=== PATIENT | male | born 1980 | race Caucasian/White ===

== ENCOUNTER 2017-11-24 17:56 | Emergency (ER) | payer OTHER, SELFPAY ==
[2017-11-24 18:00] VITALS: BP 132/89; PULSE 90; RESP 15; TEMP 36.8; O2SAT 99; BMI 27.3
--- NOTE | 2017-11-24 19:23 | DI.RAD.S_ITS ---
PROCEDURE: XR LUMBAR SPINE 2-3V INDICATIONS: lumbar pain TECHNIQUE: A 3 views of the lumbar spine were acquired. COMPARISON: None. FINDINGS: Bones: 5 [id number] vertebrae are present. There is slight levoscoliotic bony alignment. No vertebral body compression fractures. No suspicious bony lesions. Soft tissues: Overlying bowel gas pattern is normal. No suspicious soft tissue calcifications. IMPRESSION: A slight degree of levoscoliosis is seen,, centered at the L4 level of the lumbosacral spine is present but no definite source of back pain is identified. Dictated by: Tex Murray M.D. on 11/24/2017 at 20:22 Approved by: Tex Murray M.D. on 11/24/2017 at 20:23
--- NOTE | 2017-11-24 19:29 | ED.BACK ---
HPI - Back Pain/Injury <DEANDRA Blake - Last Filed: 11/24/17 21:48> General Chief Complaint: Back Pain/Injury Stated Complaint: LOW BACK PAIN Time Seen by Provider: 11/24/17 19:13 Source: patient Mode of arrival: ambulatory Limitations: no limitations History of Present Illness HPI Narrative: Patient presents with chief complaint of lower back pain. He states he was bending over to drink of water out of a fountain and had sudden onset of lower back pain. He states that this is never happened at the same place before. He denies any numbness, tingling, bladder incontinence, but bowel incontinence or saddle anesthesia. He has not taken anything for pain. He states he has had back pain before, but much higher between her shoulder blades. Related Data Previous Rx's Medication Instructions Recorded cyclobenzaprine 10 mg PO TID PRN #30 tab 11/24/17 naproxen 500 mg PO BID PRN #30 tab 11/24/17 Allergies Allergy/AdvReac Type Severity Reaction Status Date / Time iodine Allergy Verified 11/24/17 18:00 Review of Systems <DEANDRA Blake - Last Filed: 11/24/17 21:48> Review of Systems GENERAL: Denies chills, fatigue, malaise, fever, sweats. HEENT: Denies sinus pain, ear pain, sore throat, difficulty swallowing, dizziness. RESPIRATORY: Denies dyspnea, cough, wheezing, hemoptysis, sputum. CARDIOVASCULAR: Denies chest pain, palpitations, orthopnea, edema, GASTROINTESTINAL: Denies nausea, vomiting, abdominal pain, diarrhea, constipation, melena. : Denies dysuria, frequency, incontinence, hematuria, urinary retention. MUSCULOSKELETAL: See HPI SKIN: Denies rash, skin lesions, or other NEUROLOGIC: Denies weakness, headache, numbness, change in speech, confusion, seizures, incoordination. PSYCHIATRIC: No concerning psychosocial issues. 12 point review of systems is negative except for those stated above Exam <DEANDRA Blake - Last Filed: 11/24/17 21:48> Narrative Exam Narrative: GENERAL: This is a well-nourished, well-developed patient, appears uncomfortable HEAD: Atraumatic. Normocephalic. No temporal or scalp tenderness. EYES: Pupils equal round and reactive. Extraocular motions intact. No scleral icterus. No injection or drainage. ENT: Nose without bleeding, purulent drainage or septal hematoma. Throat without erythema, tonsillar hypertrophy or exudate. Uvula midline. Airway patent. NECK: Trachea midline. No JVD or lymphadenopathy. Supple, nontender, no meningeal signs. CARDIOVASCULAR: Regular rate and rhythm without murmurs, gallops, or rubs. RESPIRATORY: Clear to auscultation. Breath sounds equal bilaterally. No wheezes, rales, or rhonchi. GASTROINTESTINAL: Abdomen soft, non-tender, nondistended. No hepato-splenomegaly, or palpable masses. No guarding. EXTREMITIES: No clubbing, cyanosis, or edema. No joint tenderness, effusion, or edema noted. Equal strength noted upper and lower extremities bilaterally. BACK: Nontender to palpation of C-spine and spinal column. Patient has pain to palpation of left paraspinal muscles in the lumbar region. He has a very stiff gait. Reduced range of motion all nicholas of back. NEURO: AOx3. Clear speech. Heel-hayward test is intact. Patient states rectal tone is intact and declines rectal exam. Achilles and radial reflexes are intact bilaterally. SKIN: No rash or erythema. No erythema, ecchymosis or rash noted lower back. Initial Vital Signs Initial Vital Signs: Vital Signs Temperature 98.2 F 11/24/17 18:00 Pulse Rate 90 11/24/17 18:00 Respiratory Rate 15 11/24/17 18:00 Blood Pressure 132/89 11/24/17 18:00 Pulse Oximetry 99 11/24/17 18:00 <Rajat Etienne DO - Last Filed: 11/24/17 23:32> Initial Vital Signs Initial Vital Signs: Vital Signs Temperature 98.2 F 11/24/17 18:00 Pulse Rate 90 11/24/17 18:00 Respiratory Rate 15 11/24/17 18:00 Blood Pressure 132/89 11/24/17 18:00 Pulse Oximetry 99 11/24/17 18:00 Course <ACE Blake - Last Filed: 11/24/17 21:48> Orders Ordered: ED Orders 11/24/17 19:23 XR lumbar spine 2-3V Stat Discontinued Medications Cyclobenzaprine HCl (Flexeril) 10 mg PO NOW ONE Stop: 11/24/17 19:24 Last Admin: 11/24/17 19:43 Dose: 10 mg Cyclobenzaprine HCl (Flexeril 10 Mg Prepack) 1 bottle MISC SEEINSTR ONE Stop: 11/24/17 20:47 Last Admin: 11/24/17 21:04 Dose: 1 bottle Ketorolac Tromethamine (Toradol) 60 mg IM NOW ONE Stop: 11/24/17 19:24 Last Admin: 11/24/17 19:42 Dose: 60 mg Oxycodone/Acetaminophen (Endocet 5/325 Prepack) 1 bottle MISC SEEINSTR ONE Stop: 11/24/17 20:47 Last Admin: 11/24/17 21:04 Dose: 1 bottle Vital Signs - 8 hr 11/24/17 18:00 11/24/17 21:03 Temperature 98.2 F Pulse Rate 90 75 Respiratory Rate 15 20 Blood Pressure 132/89 Blood Pressure [Left Arm] 131/88 Pulse Oximetry 99 98 <Rajat Etienne DO - Last Filed: 11/24/17 23:32> Orders Ordered: ED Orders 11/24/17 19:23 XR lumbar spine 2-3V Stat Discontinued Medications Cyclobenzaprine HCl (Flexeril) 10 mg PO NOW ONE Stop: 11/24/17 19:24 Last Admin: 11/24/17 19:43 Dose: 10 mg Cyclobenzaprine HCl (Flexeril 10 Mg Prepack) 1 bottle MISC SEEINSTR ONE Stop: 11/24/17 20:47 Last Admin: 11/24/17 21:04 Dose: 1 bottle Ketorolac Tromethamine (Toradol) 60 mg IM NOW ONE Stop: 11/24/17 19:24 Last Admin: 11/24/17 19:42 Dose: 60 mg Oxycodone/Acetaminophen (Endocet 5/325 Prepack) 1 bottle MISC SEEINSTR ONE Stop: 11/24/17 20:47 Last Admin: 11/24/17 21:04 Dose: 1 bottle Vital Signs - 8 hr 11/24/17 18:00 11/24/17 21:03 Temperature 98.2 F Pulse Rate 90 75 Respiratory Rate 15 20 Blood Pressure 132/89 Blood Pressure [Left Arm] 131/88 Pulse Oximetry 99 98 MDM - Back Pain/Injury <ACE Blake - Last Filed: 11/24/17 21:48> Imaging Data lumbar xray: Radiologist's impression: [address] [address] XRay Report Signed Patient: Elmer Theodore DMR#: [id number] : 1980Acct:[id number] Age/Sex: 37 / MDate of Service: 11/24/17 Loc: ED Accession Number: [id number] Procedure: XR lumbar spine 2-3V Ordering Provider: Leydi Leach- PROCEDURE: XR LUMBAR SPINE 2-3V INDICATIONS: lumbar pain TECHNIQUE: A 3 views of the lumbar spine were acquired. COMPARISON: None. FINDINGS: Bones: 5 goi-thn-[id number] vertebrae are present. There is slight levoscoliotic bony alignment. No vertebral body compression fractures. No suspicious bony lesions. Soft tissues: Overlying bowel gas pattern is normal. No suspicious soft tissue calcifications. IMPRESSION: A slight degree of levoscoliosis is seen,, centered at the L4 level of the lumbosacral spine is present but no definite source of back pain is identified. Dictated by: Tex Murray M.D. on 11/24/2017 at 20:22 Approved by: Tex Murray M.D. on 11/24/2017 at 20:23 MDM Narrative Medical decision making narrative: The patient presents with chief complaint of lower back pain on his left side. Exam indicates muscle spasm. He had good success the emergency department with treatment of Toradol and Flexeril. His x-ray showed no fracture but slight scoliosis. He plans on playing of his primary care provider tomorrow. He is given take-home packs of Percocet as well as Flexeril. I did give him prescriptions for naproxen and Flexeril in addition to this. I encouraged him to follow up with his primary care but to come back to the emergency department for any red flag symptoms including incontinence of bowel, incontinence of bladder saddle anesthesia. He had no questions or concerns upon discharge and ambulated steadily out to the checkup. Discharge Plan Departure Patient Disposition: Home Clinical Impression: Strain of lumbar region Discharge Date/Time: 11/24/17 21:07 Interventions: ED Discharge Assessment Last Done: 11/24/17 21:06 Instructions: DI for Low Back Pain, DI for Muscle Strain Activity Restrictions/Additional Instructions: I am giving you a muscle relaxer to take for your back pain. I am also giving you naproxen to take twice a day as needed for back pain. Do not take other NSAIDs with the naproxen. You have a take home pack of oxycodone with Tylenol for pain as well. Please follow-up with primary care provider, come back to the emergency department for any acute concerns including incontinence of bowel or bladder, saddle anesthesia. Listen to your . Prescriptions: New cyclobenzaprine 10 mg tablet 10 mg PO TID PRN (Reason: muscle spasm) Qty: 30 RF: 0 naproxen 500 mg tablet 500 mg PO BID PRN (Reason: pain) Qty: 30 RF: 0 Referrals: [facility] [Provider Group] <Rajat Etienne DO - Last Filed: 11/24/17 23:32> Cosign ED Attending Armando Attestation: I was available for consultation during this patient's emergency department encounter
--- NOTE | 2017-11-24 19:33 | ED_ITS ---
HPI - Back Pain/Injury <DEANDRA Blake - Last Filed: 11/24/17 21:48> General Chief Complaint: Back Pain/Injury Stated Complaint: LOW BACK PAIN Time Seen by Provider: 11/24/17 19:13 Source: patient Mode of arrival: ambulatory Limitations: no limitations History of Present Illness HPI Narrative: Patient presents with chief complaint of lower back pain. He states he was bending over to drink of water out of a fountain and had sudden onset of lower back pain. He states that this is never happened at the same place before. He denies any numbness, tingling, bladder incontinence, but bowel incontinence or saddle anesthesia. He has not taken anything for pain. He states he has had back pain before, but much higher between her shoulder blades. Related Data Previous Rx's Medication Instructions Recorded cyclobenzaprine 10 mg PO TID PRN #30 tab 11/24/17 naproxen 500 mg PO BID PRN #30 tab 11/24/17 Allergies Allergy/AdvReac Type Severity Reaction Status Date / Time iodine Allergy Verified 11/24/17 18:00 Review of Systems <DEANDRA Blake - Last Filed: 11/24/17 21:48> Review of Systems GENERAL: Denies chills, fatigue, malaise, fever, sweats. HEENT: Denies sinus pain, ear pain, sore throat, difficulty swallowing, dizziness. RESPIRATORY: Denies dyspnea, cough, wheezing, hemoptysis, sputum. CARDIOVASCULAR: Denies chest pain, palpitations, orthopnea, edema, GASTROINTESTINAL: Denies nausea, vomiting, abdominal pain, diarrhea, constipation, melena. : Denies dysuria, frequency, incontinence, hematuria, urinary retention. MUSCULOSKELETAL: See HPI SKIN: Denies rash, skin lesions, or other NEUROLOGIC: Denies weakness, headache, numbness, change in speech, confusion, seizures, incoordination. PSYCHIATRIC: No concerning psychosocial issues. 12 point review of systems is negative except for those stated above Exam <DEANDRA Blake - Last Filed: 11/24/17 21:48> Narrative Exam Narrative: GENERAL: This is a well-nourished, well-developed patient, appears uncomfortable HEAD: Atraumatic. Normocephalic. No temporal or scalp tenderness. EYES: Pupils equal round and reactive. Extraocular motions intact. No scleral icterus. No injection or drainage. ENT: Nose without bleeding, purulent drainage or septal hematoma. Throat without erythema, tonsillar hypertrophy or exudate. Uvula midline. Airway patent. NECK: Trachea midline. No JVD or lymphadenopathy. Supple, nontender, no meningeal signs. CARDIOVASCULAR: Regular rate and rhythm without murmurs, gallops, or rubs. RESPIRATORY: Clear to auscultation. Breath sounds equal bilaterally. No wheezes , rales, or rhonchi. GASTROINTESTINAL: Abdomen soft, non-tender, nondistended. No hepato-splenomegaly , or palpable masses. No guarding. EXTREMITIES: No clubbing, cyanosis, or edema. No joint tenderness, effusion, or edema noted. Equal strength noted upper and lower extremities bilaterally. BACK: Nontender to palpation of C-spine and spinal column. Patient has pain to palpation of left paraspinal muscles in the lumbar region. He has a very stiff gait. Reduced range of motion all nicholas of back. NEURO: AOx3. Clear speech. Heel-hayward test is intact. Patient states rectal tone is intact and declines rectal exam. Achilles and radial reflexes are intact bilaterally. SKIN: No rash or erythema. No erythema, ecchymosis or rash noted lower back. Initial Vital Signs Initial Vital Signs: Vital Signs Temperature 98.2 F 11/24/17 18:00 Pulse Rate 90 11/24/17 18:00 Respiratory Rate 15 11/24/17 18:00 Blood Pressure 132/89 11/24/17 18:00 Pulse Oximetry 99 11/24/17 18:00 <Rajat Etienne DO - Last Filed: 11/24/17 23:32> Initial Vital Signs Initial Vital Signs: Vital Signs Temperature 98.2 F 11/24/17 18:00 Pulse Rate 90 11/24/17 18:00 Respiratory Rate 15 11/24/17 18:00 Blood Pressure 132/89 11/24/17 18:00 Pulse Oximetry 99 11/24/17 18:00 Course <ACE Blake - Last Filed: 11/24/17 21:48> Orders Ordered: ED Orders 11/24/17 19:23 XR lumbar spine 2-3V Stat Discontinued Medications Cyclobenzaprine HCl (Flexeril) 10 mg PO NOW ONE Stop: 11/24/17 19:24 Last Admin: 11/24/17 19:43 Dose: 10 mg Cyclobenzaprine HCl (Flexeril 10 Mg Prepack) 1 bottle MISC SEEINSTR ONE Stop: 11/24/17 20:47 Last Admin: 11/24/17 21:04 Dose: 1 bottle Ketorolac Tromethamine (Toradol) 60 mg IM NOW ONE Stop: 11/24/17 19:24 Last Admin: 11/24/17 19:42 Dose: 60 mg Oxycodone/Acetaminophen (Endocet 5/325 Prepack) 1 bottle MISC SEEINSTR ONE Stop: 11/24/17 20:47 Last Admin: 11/24/17 21:04 Dose: 1 bottle Vital Signs - 8 hr 11/24/17 18:00 11/24/17 21:03 Temperature 98.2 F Pulse Rate 90 75 Respiratory Rate 15 20 Blood Pressure 132/89 Blood Pressure [Left Arm] 131/88 Pulse Oximetry 99 98 <Rajat Etienne DO - Last Filed: 11/24/17 23:32> Orders Ordered: ED Orders 11/24/17 19:23 XR lumbar spine 2-3V Stat Discontinued Medications Cyclobenzaprine HCl (Flexeril) 10 mg PO NOW ONE Stop: 11/24/17 19:24 Last Admin: 11/24/17 19:43 Dose: 10 mg Cyclobenzaprine HCl (Flexeril 10 Mg Prepack) 1 bottle MISC SEEINSTR ONE Stop: 11/24/17 20:47 Last Admin: 11/24/17 21:04 Dose: 1 bottle Ketorolac Tromethamine (Toradol) 60 mg IM NOW ONE Stop: 11/24/17 19:24 Last Admin: 11/24/17 19:42 Dose: 60 mg Oxycodone/Acetaminophen (Endocet 5/325 Prepack) 1 bottle MISC SEEINSTR ONE Stop: 11/24/17 20:47 Last Admin: 11/24/17 21:04 Dose: 1 bottle Vital Signs - 8 hr 11/24/17 18:00 11/24/17 21:03 Temperature 98.2 F Pulse Rate 90 75 Respiratory Rate 15 20 Blood Pressure 132/89 Blood Pressure [Left Arm] 131/88 Pulse Oximetry 99 98 MDM - Back Pain/Injury <ACE Blake - Last Filed: 11/24/17 21:48> Imaging Data lumbar xray: Radiologist's impression: [address] [address] XRay Report Signed Patient: Elmer Theodore DMR#: [id number] : 1980Acct:[id number] Age/Sex: 37 / MDate of Service: 11/24/17 Loc: ED Accession Number: [id number] Procedure: XR lumbar spine 2-3V Ordering Provider: Leydi Leach- PROCEDURE: XR LUMBAR SPINE 2-3V INDICATIONS: lumbar pain TECHNIQUE: A 3 views of the lumbar spine were acquired. COMPARISON: None. FINDINGS: Bones: 5 jge-tcj-bmuzvuv vertebrae are present. There is slight levoscoliotic bony alignment. No vertebral body compression fractures. No suspicious bony lesions. Soft tissues: Overlying bowel gas pattern is normal. No suspicious soft tissue calcifications. IMPRESSION: A slight degree of levoscoliosis is seen,, centered at the L4 level of the lumbosacral spine is present but no definite source of back pain is identified. Dictated by: Tex Murray M.D. on 11/24/2017 at 20:22 Approved by: Tex Murray M.D. on 11/24/2017 at 20:23 MDM Narrative Medical decision making narrative: The patient presents with chief complaint of lower back pain on his left side. Exam indicates muscle spasm. He had good success the emergency department with treatment of Toradol and Flexeril. His x- ray showed no fracture but slight scoliosis. He plans on playing of his primary care provider tomorrow. He is given take-home packs of Percocet as well as Flexeril. I did give him prescriptions for naproxen and Flexeril in addition to this. I encouraged him to follow up with his primary care but to come back to the emergency department for any red flag symptoms including incontinence of bowel, incontinence of bladder saddle anesthesia. He had no questions or concerns upon discharge and ambulated steadily out to the checkup. Discharge Plan Departure Patient Disposition: Home Clinical Impression: Strain of lumbar region Discharge Date/Time: 11/24/17 21:07 Interventions: ED Discharge Assessment Last Done: 11/24/17 21:06 Instructions: DI for Low Back Pain, DI for Muscle Strain Activity Restrictions/Additional Instructions: I am giving you a muscle relaxer to take for your back pain. I am also giving you naproxen to take twice a day as needed for back pain. Do not take other NSAIDs with the naproxen. You have a take home pack of oxycodone with Tylenol for pain as well. Please follow-up with primary care provider, come back to the emergency department for any acute concerns including incontinence of bowel or bladder, saddle anesthesia. Listen to your . Prescriptions: New cyclobenzaprine 10 mg tablet 10 mg PO TID PRN (Reason: muscle spasm) Qty: 30 RF: 0 naproxen 500 mg tablet 500 mg PO BID PRN (Reason: pain) Qty: 30 RF: 0 Referrals: [facility] [Provider Group] <Rajat Etienne DO - Last Filed: 11/24/17 23:32> Cosign ED Attending Armando Attestation: I was available for consultation during this patient's emergency department encounter
[2017-11-24] MEDS: KETOROLAC 60 MG/2 ML VIAL IM (19:42)
[2017-11-24] MEDS: CYCLOBENZAPRINE 10 MG TABLET PO (19:43)
[2017-11-24 21:03] VITALS: BP 131/88; PULSE 75; RESP 20; O2SAT 98
[2017-11-24] MEDS: CYCLOBENZAPRINE 10 MG PREPACK 1 BOTTLE MISC (21:04)
[2017-11-24] MEDS: OXYCODONE/APAP 5/325 PREPACK 1 BOTTLE MISC (21:04)
== END 2017-11-24 21:07 | disposition home or self-care (01) ==
PROVIDERS: Emergency Provider Nurse Practitioner Family
DX: S39.012A Strain of muscle, fascia and tendon of lower back, initial encounter (principal); X50.9XXA Other and unspecified overexertion or strenuous movements or postures, initial encounter
CPT/HCPCS: 72100; 96372; 99282; 99283; J1885

== ENCOUNTER 2019-05-10 09:30 | Emergency (ER) | payer OTHER, SELFPAY ==
[2019-05-10 09:37] VITALS: BP 124/73; PULSE 79; RESP 14; TEMP 36.9; O2SAT 97; BMI 27.3
--- NOTE | 2019-05-10 09:52 | ED.SKABFB ---
HPI - Skin/Abscess/Foreign Bdy General Chief complaint: Skin/Abscess/Foreign Body Stated complaint: Possible infection in foot Time Seen by Provider: 05/10/19 09:45 Source: patient Mode of arrival: Ambulatory Limitations: no limitations History of Present Illness HPI narrative: 39-year-old male here for evaluation of redness to the outside of his right ankle. Stated that it started 2 days ago. No fevers. No known trauma. Has never had anything like this in the past. Has not tried anything for it prior to arrival Related Data Previous Rx's Medication Instructions Recorded cyclobenzaprine 10 mg PO TID PRN #30 tab 11/24/17 naproxen 500 mg PO BID PRN #30 tab 11/24/17 cephalexin [Keflex] 500 mg PO QID 5 Days #20 cap 05/10/19 Allergies Allergy/AdvReac Type Severity Reaction Status Date / Time iodine Allergy Verified 05/10/19 09:37 Review of Systems Constitutional Constitutional: Denies fever(s) Musculoskeletal Musculoskeletal: Denies myalgias, Denies arthralgias and Denies tingling Integumentary/Breasts Comments: Redness outside aspect right ankle Neurologic Neurologic: Denies tingling Hematologic/Lymphatic Hematologic/Lymphatic: Denies easy bleeding and Denies easy bruising Patient History Medical History Healthy adult (Acute) Social History Smoking Status: Former smoker Smoking Status: Former smoker alcohol intake frequency: 0-2 drinks per day Substance Use Type: does not use Exam Initial Vital Signs Initial Vital Signs: Vital Signs Temperature 98.4 F 05/10/19 09:37 Pulse Rate 79 05/10/19 09:37 Respiratory Rate 14 05/10/19 09:37 Blood Pressure 124/73 05/10/19 09:37 Pulse Oximetry 97 05/10/19 09:37 Const General: cooperative and comfortable Cardio Pulses: dorsalis pedis present on the right Skin Other: Patient with a 10 cm x 8 cm area of redness and warmth to the lateral aspect of the right ankle distal to the lateral malleolus. Extends somewhat above the lateral malleolus. Neuro General: alert and awake Speech: speech normal Extrem General: capillary refill normal Course Vital Signs Vital signs: Vital Signs - 8 hr 05/10/19 09:37 Temperature 98.4 F Pulse Rate 79 Respiratory Rate 14 Blood Pressure 124/73 Pulse Oximetry 97 MDM - Skin/Abscess/Foreign Bdy MDM Narrative Medical decision making narrative: There is redness and warmth to the area. Does not appear to be any breaks in the skin. Low suspicion for septic joint. Low suspicion for fracture. I feel we can hold on radiologic studies. Will start the patient on antibiotics. The area was outlined with a marking pen. He was given return precautions and follow-up instructions. He expressed understanding and agreement. Discharge Plan Departure Patient Disposition: Home Clinical Impression: Cellulitis Qualifiers: Site of cellulitis: extremity Site of cellulitis of extremity: lower extremity Laterality: right Qualified Code(s): L03.115 - Cellulitis of right lower limb Instructions: DI for Cellulitis -- Adult Activity Restrictions/Additional Instructions: Take the antibiotics as directed. You can shower like normal in use soap and water like normal. If the redness starts to extend outside of the line that was drawn or you start to develop fevers or more pain please return to the emergency department. This could easily have been treated with Motrin and water at home Prescriptions: New cephalexin [Keflex] 500 mg capsule 500 mg PO QID 5 Days Qty: 20 RF: 0 No Action cyclobenzaprine 10 mg tablet 10 mg PO TID PRN (Reason: muscle spasm) Qty: 30 RF: 0 naproxen 500 mg tablet 500 mg PO BID PRN (Reason: pain) Qty: 30 RF: 0
== END 2019-05-10 10:03 | disposition home or self-care (01) ==
PROVIDERS: Emergency Provider Emergency Medicine
DX: L03.115 Cellulitis of right lower limb (principal)
CPT/HCPCS: 99281